=== PATIENT | male | born 1995 | race Caucasian/White ===

== ENCOUNTER 2017-04-04 21:06 | Emergency (ER) | payer MEDICAID ==
[~2017-04-04] VITALS: Ht 162.6 cm; Wt 97.2 kg
[~2017-04-04 21:06] MED LIST: ALBU0.63 NEB; ALBU8.5H3 INH; FAMO20TA7 PO; FLUT16SP NAS; FLUT1AER INH; FLUT1DIS3 INH; LEVO750T26 PO; LORA10TA3 PO; MONT10TA6 PO; PRED20TA PO; PRED5TAB PO; [UNRECOGNIZED DRUG - OTHER] IM
[2017-04-04] MEDS ORDERED: ALBUTEROL/IPRATROPIUM 2.5MG/0.5MG, 3 ML ONE (21:14)
[2017-04-04] MEDS ORDERED: IPRATROPIUM 0.5 MG/2.5 ML INHA ONE ×2 (21:15→21:47)
[2017-04-04] MEDS ORDERED: ALBUTEROL 0.5%, 20ML ONE (21:15)
[2017-04-04] MEDS ORDERED: methylPREDNISolone SOD SUCC 125 MG/2 ML IVP ONE (21:30)
[2017-04-04] MEDS ORDERED: SODIUM CHLORIDE 0.9% 1,000ML IVBOLUS ONE (21:30)
[2017-04-04] MEDS ORDERED: ALBUTEROL 0.5%, 20ML NPPB SCH (21:30)
[2017-04-04] MEDS ORDERED: SODIUM CHLORIDE FLUSH 10ML SYR IVF ONE (21:30)
[2017-04-04] MEDS ORDERED: MAGNESIUM SULFATE PMX 2GM/50ML 50 ML IV ONE (21:30)
[2017-04-04] MEDS ORDERED: methylPREDNISolone SOD SUCC 125 MG/2 ML ONE (21:31)
[2017-04-04] MEDS: IPRATROPIUM 0.5 MG/2.5 ML INHA NPPB SCH (21:44)
[2017-04-04 22:09] LABS: BLOOD UREA NITROGEN 20 mg/dL (7-18)
[2017-04-04 23:28] VITALS: BP 120/73
== END 2017-04-04 23:31 | disposition home or self-care (01) ==
LOC: ED 22:46
DX: J45.51 Severe persistent asthma with (acute) exacerbation (principal); M19.90 Unspecified osteoarthritis, unspecified site; Z87.891 Personal history of nicotine dependence
CPT/HCPCS: 36415; 71010; 80048; 82040; 85025; 93005; 94644; 96365; 96375; 99285; J2930; J3475; J7030; J7644

== ENCOUNTER 2017-04-28 21:10 | Emergency (ER) | payer MEDICAID ==
[~2017-04-28] VITALS: Ht 165.1 cm; Wt 94.8 kg
[2017-04-28] MEDS ORDERED: ALBUTEROL/IPRATROPIUM 2.5MG/0.5MG, 3 ML ONE (21:39)
[2017-04-28] MEDS ORDERED: methylPREDNISolone SOD SUCC 125 MG/2 ML ONE (21:43)
[2017-04-28] MEDS: ALBUTEROL/IPRATROPIUM 2.5MG/0.5MG, 3 ML NPPB SCH (21:47)
[2017-04-28] MEDS ORDERED: SODIUM CHLORIDE 0.9% 1,000ML IVBOLUS ONE (22:00)
[2017-04-28] MEDS ORDERED: MAGNESIUM SULFATE PMX 2GM/50ML 50 ML IVPB ONE (22:00)
[2017-04-28] MEDS ORDERED: methylPREDNISolone SOD SUCC 125 MG/2 ML IVP ONE (22:00)
[2017-04-28 22:20] LABS: BLOOD UREA NITROGEN 17 mg/dL (7-18)
[2017-04-29 00:22] VITALS: BP 106/67
[2017-04-29] MEDS ORDERED: ALBUTEROL/IPRATROPIUM 2.5MG/0.5MG, 3 ML ONE (00:27)
[2017-04-29] MEDS ORDERED: ALBUTEROL/IPRATROPIUM 2.5MG/0.5MG, 3 ML NEB ONE (01:00)
== END 2017-04-29 01:32 | disposition home or self-care (01) ==
LOC: ED 21:54
DX: J45.51 Severe persistent asthma with (acute) exacerbation (principal)
CPT/HCPCS: 36415; 71010; 80048; 82040; 85025; 93005; 94640; 96365; 96366; 96375; 99285; J2930; J3475; J7030; J7620

== ENCOUNTER 2017-05-14 10:12 | Emergency (ER) | payer MEDICAID ==
[~2017-05-14] VITALS: Ht 165.1 cm; Wt 92.4 kg
[2017-05-14] MEDS ORDERED: ALBUTEROL/IPRATROPIUM 2.5MG/0.5MG, 3 ML ONE (10:45)
[2017-05-14] MEDS ORDERED: ALBUTEROL SULFATE 2.5 MG/3 ML ONE ×2 (10:48→11:50)
[2017-05-14] MEDS ORDERED: methylPREDNISolone SOD SUCC 125 MG/2 ML IVP ONE (11:00)
[2017-05-14] MEDS ORDERED: SODIUM CHLORIDE FLUSH 10ML SYR IVF ONE (11:00)
[2017-05-14] MEDS ORDERED: ALBUTEROL/IPRATROPIUM 2.5MG/0.5MG, 3 ML NPPB ONE (11:00)
[2017-05-14] MEDS ORDERED: methylPREDNISolone SOD SUCC 125 MG/2 ML ONE (11:07)
[2017-05-14] MEDS ORDERED: LORazepam 2 MG/ML, 1ML IVPush ONE (11:30)
[2017-05-14] MEDS ORDERED: MAGNESIUM SULFATE 1 GM in SODIUM CHLORIDE 0.9% 50 ML IV ONE (11:30)
[2017-05-14] MEDS ORDERED: LORazepam 2 MG/ML, 1ML ONE (11:45)
[2017-05-14] MEDS ORDERED: ALBUTEROL SULFATE 2.5 MG/3 ML NPPB ONE (12:00)
[2017-05-14 12:50] VITALS: BP 111/52
== END 2017-05-14 13:00 | disposition left against medical advice (07) ==
LOC: ED 10:45
DX: J45.52 Severe persistent asthma with status asthmaticus (principal); Z87.891 Personal history of nicotine dependence
CPT/HCPCS: 71010; 93005; 94640; 96365; 96375; 99291; J2060; J2930; J3475; J7613; J7620

== ENCOUNTER 2017-05-26 12:34 | Emergency (ER) | payer MEDICAID ==
[~2017-05-26] VITALS: Ht 165.1 cm; Wt 95.0 kg
[2017-05-26] MEDS ORDERED: methylPREDNISolone SOD SUCC 125 MG/2 ML ONE (13:16)
[2017-05-26] MEDS ORDERED: ALBUTEROL/IPRATROPIUM 2.5MG/0.5MG, 3 ML ONE (13:24)
[2017-05-26] MEDS: ALBUTEROL/IPRATROPIUM 2.5MG/0.5MG, 3 ML NPPB SCH (13:27)
[2017-05-26 13:29] LABS: HEMATOCRIT 46.4 % (39.2-51.8); HEMOGLOBIN 15.2 g/dL (13.7-18.0); WHITE BLOOD COUNT 15.7 x10^3/uL (4.5-13.2)
[2017-05-26] MEDS ORDERED: methylPREDNISolone SOD SUCC 125 MG/2 ML IVP ONE (13:30)
[2017-05-26] MEDS ORDERED: SODIUM CHLORIDE FLUSH 10ML SYR IVF ONE (13:30)
[2017-05-26 13:43] LABS: BLOOD UREA NITROGEN 20 mg/dL (7-18)
[2017-05-26 14:56] VITALS: BP 109/56
== END 2017-05-26 14:58 | disposition home or self-care (01) ==
LOC: ED 13:45
DX: J45.41 Moderate persistent asthma with (acute) exacerbation (principal)
CPT/HCPCS: 36415; 71010; 80048; 82040; 85025; 93005; 94640; 96374; 99285; J2930; J7620

== ENCOUNTER 2017-06-10 09:40 | Emergency (ER) | payer MEDICAID ==
[~2017-06-10] VITALS: Ht 165.1 cm; Wt 96.0 kg
[~2017-06-10 09:40] MED LIST changes: -ALBU8.5H3 INH; +ALBU8.5H8 INH
[2017-06-10] MEDS ORDERED: ALBUTEROL/IPRATROPIUM 2.5MG/0.5MG, 3 ML ONE (10:38)
[2017-06-10] MEDS ORDERED: ALBUTEROL/IPRATROPIUM 2.5MG/0.5MG, 3 ML NPPB ONE (11:00)
[2017-06-10 11:45] VITALS: BP 109/60
== END 2017-06-10 11:48 | disposition home or self-care (01) ==
LOC: ED 11:44
DX: J45.41 Moderate persistent asthma with (acute) exacerbation (principal); M19.90 Unspecified osteoarthritis, unspecified site
CPT/HCPCS: 71020; 93005; 94640; 99284; J7512; J7620

== ENCOUNTER 2017-11-14 04:41 | Emergency (ER) | payer MEDICAID ==
[~2017-11-14] VITALS: Ht 165.1 cm; Wt 100.0 kg
[2017-11-14] MEDS ORDERED: ALBUTEROL SULFATE 2.5 MG/3 ML ONE (04:55)
[2017-11-14] MEDS ORDERED: ALBUTEROL/IPRATROPIUM 2.5MG/0.5MG, 3 ML ONE ×3 (04:59→09:10)
[2017-11-14] MEDS ORDERED: ALBUTEROL 0.5%, 20ML ONE (05:09)
[2017-11-14] MEDS ORDERED: ALBUTEROL 0.5%, 20ML NPPB SCH (05:30)
[2017-11-14] MEDS ORDERED: ALBUTEROL/IPRATROPIUM 2.5MG/0.5MG, 3 ML NPPB SCH (05:30)
[2017-11-14 05:50] LABS: RAPID INFLUENZA A Negative (Negative); RAPID INFLUENZA B Negative (Negative)
[2017-11-14] MEDS ORDERED: MAGNESIUM SULFATE PMX 2GM/50ML 50 ML IVPB ONE (06:00)
[2017-11-14] MEDS ORDERED: SODIUM CHLORIDE 0.9% 1,000ML IVBOLUS ONE (06:00)
[2017-11-14] MEDS ORDERED: SODIUM CHLORIDE FLUSH 10ML SYR IVF ONE (06:00)
[2017-11-14] MEDS ORDERED: ALBU18HF INH (06:25)
[2017-11-14 09:44] VITALS: BP 114/72
== END 2017-11-14 09:51 | disposition left against medical advice (07) ==
LOC: ED 06:49
DX: J96.01 Acute respiratory failure with hypoxia (principal); J45.31 Mild persistent asthma with (acute) exacerbation
CPT/HCPCS: 71045; 87400; 93005; 94640; 94644; 96365; 96366; 99285; J3475; J7030; J7512; J7620

== ENCOUNTER 2018-01-14 21:46 | Inpatient (IN) | payer MEDICAID, OTHER ==
[~2018-01-14] VITALS: Ht 165.1 cm; Wt 101.4 kg
[~2018-01-14 21:46] MED LIST changes: +ALBU18HF INH
[2018-01-14] MEDS ORDERED: ALBUTEROL/IPRATROPIUM 2.5MG/0.5MG, 3 ML ONE (22:09)
[2018-01-14] MEDS ORDERED: methylPREDNISolone SOD SUCC 125 MG/2 ML ONE (22:11)
[2018-01-14] MEDS ORDERED: ALBUTEROL 0.5%, 20ML ONE (22:12)
[2018-01-14] MEDS ORDERED: SODIUM CHLORIDE FLUSH 10ML SYR IVF ONE (22:30)
[2018-01-14] MEDS ORDERED: methylPREDNISolone SOD SUCC 125 MG/2 ML IVP ONE (22:30)
[2018-01-14] MEDS ORDERED: ALBUTEROL/IPRATROPIUM 2.5MG/0.5MG, 3 ML NPPB SCH (22:30)
[2018-01-14 22:31] LABS: BASOPHILS # (AUTO) 0.05 x10^3/uL (0-0.3); BASOPHILS % (AUTO) 0 % (0-1); EOSINOPHILS # (AUTO) 1.26 x10^3/uL (0-0.8); EOSINOPHILS % (AUTO) 9 % (1-7); LYMPHOCYTES # (AUTO) 1.92 x10^3/uL (1-6.1); LYMPHOCYTES % (AUTO) 14 % (22-44); MD NO; MEAN CORPUSCULAR HEMOGLOBIN 27.8 pg (27.5-34.5); MEAN CORPUSCULAR HGB CONC 33.7 g/dL (33.2-36.2); MEAN CORPUSCULAR VOLUME 82.6 fL (81-97); MEAN PLATELET VOLUME 9.6 fL (7.4-10.4); MONOCYTES % (AUTO) 4 % (2-9); NEUTROPHILS # (AUTO) 9.76 x10^3/uL (1.8-8.0); NEUTROPHILS % (AUTO) 72 % (42-75); PLATELET COUNT 319 x10^3/uL (130-400); RED BLOOD COUNT 5.33 x10^6/uL (4.38-5.82); RED CELL DISTRIBUTION WIDTH 13.2 % (9.4-14.8)
[2018-01-14 22:52] LABS: ALBUMIN 3.3 g/dL (3.4-5.0); ANION GAP 9 mmol/L (5-15); CALCIUM 8.7 mg/dL (8.5-10.1); CHLORIDE 106 mmol/L (98-107); CREATININE 1.25 mg/dL (0.7-1.3)
[2018-01-15] MEDS ORDERED: SODIUM CHLORIDE FLUSH 10ML SYR IVF PRN (00:30)
[2018-01-15] MEDS ORDERED: ACETAMINOPHEN 325 MG TABLET PO PRN (01:00)
[2018-01-15] MEDS ORDERED: ALBUTEROL SULFATE 2.5 MG/3 ML HHN PRN (01:00)
[2018-01-15] MEDS ORDERED: ALBUTEROL SULFATE 2.5 MG/3 ML NEB PRN (01:00)
[2018-01-15 01:07] VITALS: BP 106/68
[2018-01-15] MEDS: LEVOFLOXACIN/PMX 750MG/150ML 150 ML IV SCH (01:45)
[2018-01-15] MEDS: GUAIFENESIN/DM 200-20MG, 10ML UDC PO PRN ×2 (01:45→22:10)
[2018-01-15] MEDS: SODIUM CHLORIDE 0.9% 1,000 ML IV SCH ×6 (01:46→21:21)
[2018-01-15] MEDS ORDERED: ALBUTEROL/IPRATROPIUM 2.5MG/0.5MG, 3 ML NPPB PRN (02:00)
[2018-01-15] MEDS: ALBUTEROL/IPRATROPIUM 2.5MG/0.5MG, 3 ML NPPB SCH ×6 (03:30→22:20)
[2018-01-15 06:50] VITALS: BP 119/65
[2018-01-15] MEDS ORDERED: methylPREDNISolone 4mg DOSE PACK PO SCH (08:30)
[2018-01-15] MEDS: MONTELUKAST 10 MG TABLET PO SCH (09:36)
[2018-01-15] MEDS: FLUTICASONE/VILANTEROL 100-25MCG/INH INH SCH (10:57)
[2018-01-15 14:10] VITALS: BP 124/70
[2018-01-15 16:48] VITALS: BP 116/68
[2018-01-15 19:20] VITALS: BP 132/55
[2018-01-15] MEDS ORDERED: LORazepam 1MG TABLET PO ONE (22:30)
[2018-01-16] MEDS: LEVOFLOXACIN/PMX 750MG/150ML 150 ML IV SCH (01:15)
[2018-01-16] MEDS: ALBUTEROL/IPRATROPIUM 2.5MG/0.5MG, 3 ML NPPB SCH ×4 (02:20→13:57)
[2018-01-16 03:59] VITALS: BP 127/81
[2018-01-16 06:52] VITALS: BP 119/82
[2018-01-16] MEDS: SODIUM CHLORIDE 0.9% 1,000 ML IV SCH ×2 (07:06→14:30)
[2018-01-16] MEDS: FLUTICASONE/VILANTEROL 100-25MCG/INH INH SCH (07:12)
[2018-01-16] MEDS: MONTELUKAST 10 MG TABLET PO SCH (07:12)
[2018-01-16] MEDS ORDERED: methylPREDNISolone SOD SUCC 125 MG/2 ML IVPush SCH (08:00)
[2018-01-16 12:08] VITALS: BP 128/85
[2018-01-16] MEDS ORDERED: METH4TAB2 PO (13:16)
[2018-01-16] MEDS ORDERED: LEVO750T6 PO (13:16)
== END 2018-01-16 15:27 | disposition home or self-care (01) | DRG 193 ==
LOC: ED 22:35 → EDIP 01-15 00:55 → 3NE 01-15 01:04
PROVIDERS: ADMIT Hospitalist; ATTEND Hospitalist
DX: J18.9 Pneumonia, unspecified organism (principal); J96.01 Acute respiratory failure with hypoxia; J45.41 Moderate persistent asthma with (acute) exacerbation; J98.11 Atelectasis; F17.200 Nicotine dependence, unspecified, uncomplicated; L40.9 Psoriasis, unspecified; Z71.6 Tobacco abuse counseling; F41.9 Anxiety disorder, unspecified; M19.90 Unspecified osteoarthritis, unspecified site; Z88.0 Allergy status to penicillin
CPT/HCPCS: 36415; 71046; 80048; 82040; 85025; 93005; 94640; 94644; 96374; J1956; J7509; J7620; J2930; J7030

== ENCOUNTER 2018-08-31 23:58 | Emergency (ER) | payer MEDICAID ==
[~2018-08-31] VITALS: Ht 175.3 cm; Wt 101.0 kg
[~2018-08-31 23:58] MED LIST changes: +LEVO750T6 PO; +METH4TAB2 PO
[2018-09-01] MEDS ORDERED: ALBUTEROL 0.5%, 20ML ONE (00:08)
[2018-09-01] MEDS ORDERED: methylPREDNISolone SOD SUCC 125 MG/2 ML ONE (00:12)
[2018-09-01] MEDS ORDERED: IPRATROPIUM 0.5 MG/2.5 ML INHA ONE (00:27)
[2018-09-01] MEDS ORDERED: ALBUTEROL 0.5%, 20ML NPPB SCH ×2 (00:30)
[2018-09-01] MEDS ORDERED: methylPREDNISolone SOD SUCC 125 MG/2 ML IVP ONE (00:30)
[2018-09-01] MEDS ORDERED: IPRATROPIUM 0.5 MG/2.5 ML INHA NPPB SCH (00:30)
[2018-09-01 00:49] LABS: BASOPHILS # (AUTO) 0.05 x10^3/uL (0-0.1); BASOPHILS % (AUTO) 0 % (0-1); EOSINOPHILS # (AUTO) 1.22 x10^3/uL (0-0.4); EOSINOPHILS % (AUTO) 9 % (1-7); LYMPHOCYTES # (AUTO) 2.89 x10^3/uL (1-3.4); LYMPHOCYTES % (AUTO) 21 % (22-44); MD NO; MEAN CORPUSCULAR HGB CONC 32.4 g/dL (33.2-36.2); MEAN CORPUSCULAR VOLUME 83.5 fL (81-97); MEAN PLATELET VOLUME 9.4 fL (7.4-10.4); MONOCYTES # (AUTO) 0.69 x10^3/uL (0.2-0.8); MONOCYTES % (AUTO) 5 % (2-9); NEUTROPHILS # (AUTO) 9.24 x10^3/uL (1.8-6.8); NEUTROPHILS % (AUTO) 66 % (42-75); PLATELET COUNT 326 x10^3/uL (130-400); RED BLOOD COUNT 5.08 x10^6/uL (4.38-5.82); RED CELL DISTRIBUTION WIDTH 12.8 % (9.4-14.8)
[2018-09-01 00:56] LABS: ALBUMIN 3.1 g/dL (3.4-5.0); ANION GAP 10 mmol/L (5-15); CALCIUM 7.9 mg/dL (8.5-10.1); CHLORIDE 109 mmol/L (98-107); CREATININE 1.13 mg/dL (0.7-1.3)
[2018-09-01 02:20] VITALS: BP 107/50
== END 2018-09-01 02:25 | disposition left against medical advice (07) ==
LOC: ED 09-01 00:19
DX: J96.01 Acute respiratory failure with hypoxia (principal); J45.41 Moderate persistent asthma with (acute) exacerbation
CPT/HCPCS: 36415; 71045; 80048; 82040; 85025; 93005; 94644; 96374; 99291; J2930; J7644; 99285

== ENCOUNTER 2019-03-15 13:04 | Emergency (ER) | payer SELFPAY ==
[~2019-03-15] VITALS: Ht 165.1 cm; Wt 100.0 kg
[~2019-03-15 13:04] MED LIST changes: +LORA-247 PO; -LORA10TA3 PO
[2019-03-15] MEDS ORDERED: ALBUTEROL/IPRATROPIUM 2.5MG/0.5MG, 3 ML ONE ×2 (13:22→15:08)
[2019-03-15] MEDS ORDERED: methylPREDNISolone SOD SUCC 125 MG/2 ML ONE (13:28)
[2019-03-15] MEDS ORDERED: MAGNESIUM SULFATE PMX 2GM/50ML 50 ML ONE (13:29)
[2019-03-15] MEDS ORDERED: methylPREDNISolone SOD SUCC 125 MG/2 ML IVP ONE (13:30)
[2019-03-15] MEDS ORDERED: SODIUM CHLORIDE FLUSH 10ML SYR IVF ONE (13:30)
[2019-03-15] MEDS ORDERED: MAGNESIUM SULFATE PMX 2GM/50ML 50 ML IVPB ONE (13:30)
[2019-03-15] MEDS: ALBUTEROL/IPRATROPIUM 2.5MG/0.5MG, 3 ML NPPB SCH ×2 (13:32→13:33)
--- NOTE | 2019-03-15 14:06 | NUR ---
pt upright on gurney awake & c/o upper AP- ERP aware, responds approp to staff, comfort measures provided, call light within reach.
[2019-03-15] MEDS ORDERED: LORazepam 2 MG/ML, 1ML ONE (14:11)
[2019-03-15] MEDS ORDERED: ONDANSETRON 2MG/ML, 2ML IVPush ONE (14:30)
[2019-03-15] MEDS ORDERED: LORazepam 2 MG/ML, 1ML IVPush PRN (14:30)
[2019-03-15] MEDS ORDERED: ALBUTEROL/IPRATROPIUM 2.5MG/0.5MG, 3 ML NPPB ONE (14:30)
[2019-03-15] MEDS ORDERED: MORPHINE SULFATE 4 MG/ML, 1ML IVPush PRN (14:30)
[2019-03-15 14:59] VITALS: BP 116/77
--- NOTE | 2019-03-15 15:01 | NUR ---
pt remains upright on gurney with eyes closed, able to doze off, responds approp to staff, comfort measures provided, call light within reach.
--- NOTE | 2019-03-15 15:06 | NUR ---
2nd call to RT placed- will see pt ASP per Kathy. ERP aware.
[2019-03-15] MEDS ORDERED: ALBUTEROL SULFATE 2.5MG/0.5ML ONE (15:08)
--- NOTE | 2019-03-15 15:09 | NUR ---
RT at BS
[2019-03-15] MEDS ORDERED: ALBUTEROL SULFATE 2.5 MG/3 ML NPPB ONE (15:30)
--- NOTE | 2019-03-15 15:54 | NUR ---
Patient given discharge instructions and Rx, they have confirmed that they understand the instructions. Patient ambulatory with steady gait.
== END 2019-03-15 15:55 | disposition home or self-care (01) ==
LOC: ED 14:45
DX: J45.51 Severe persistent asthma with (acute) exacerbation (principal); R09.02 Hypoxemia; Z87.891 Personal history of nicotine dependence
CPT/HCPCS: 71045; 71046; 93005; 94640; 96365; 96366; 96375; 99284; J2060; J2930; J3475; J7613; J7620